=== PATIENT | male | born 1975 | race Caucasian/White ===

== ENCOUNTER 2018-11-07 17:36 | Inpatient (IN) ==
--- NOTE | 2018-11-07 20:29 | XRay Report ---
XR chest 1V portable HISTORY: Atypical chest pain. COMPARISON: Chest 02/03/2014. FINDINGS: The heart remains enlarged. Small left pleural effusion. Perihilar interstitial vascular th ickening has progressed. This is consistent with mild pulmonary edema. No pneumothorax. There are pos tsternotomy changes. IMPRESSION: Interval progression of the mild pulmonary edema and small left pleural effusion. Electronically signed by: Roland Murcia M.D. 11/07/2018 8:27 PM
--- NOTE | 2018-11-07 20:31 | XRay Report ---
RIGHT FOOT 3 VIEWS HISTORY: 2 ulcers under foot and 5th metatarsal ro osteo COMPARISON: None. FINDINGS: No acute fracture or dislocation within the right foot. Old, healed fracture at the neck of the fifth metatarsal. Focal skin ulceration along the plantar surface of the distal first toe measur ing 7 mm. No underlying bony destruction. There is also soft tissue gas at the base of the fifth toe which could be due to a skin ulceration or a gas-forming organism. No underlying bony destruction to suggest osteomyelitis. Old, healed fracture within the proximal phalanx of the fourth toe. No radiopa que foreign bodies. IMPRESSION: 1. No evidence for a myelitis within the right foot. 2. A 7 mm focal skin ulceration at the plantar surface of the distal first toe. 3. There is also soft tissue gas at the base of the fifth toe which could be due to a skin ulceration or a gas-forming infection. Electronically signed by: Roland Murcia M.D. 11/07/2018 8:30 PM
[2018-11-07 20:41] LABS: Basophils # (auto) 0.01 K/uL (0-0.2); Basophils % (auto) 0.1 %; Hematocrit (blood only) 41.4 % (42-52); Immature Granulocytes # (auto) 0.06 K/uL (0.00-0.02); Immature Granulocytes % (auto) 0.5 %; Lymphocytes % (auto) 3.2 %; Mean Corpuscular Hemoglobin 32.8 pg (25-34); Mean Corpuscular Hgb Conc 33.8 g/dL (32-36); Monocytes # (auto) 0.79 K/uL (0.11-0.59); Monocytes % (auto) 6.3 %; Neutrophils # (auto) 11.36 K/uL (1.4-6.5); Neutrophils % (auto) 89.9 %; Platelet Count 126 K/uL (130-400); RDW Coefficient of Variation 14.8 % (11.5-14.5); RDW Standard Deviation 52.8 fL (36.4-46.3); Red Blood Count 4.27 M/uL (4.7-6.1); White Blood Count 12.62 K/uL (4.8-10.8)
[2018-11-07 21:03] LABS: BUN Creatinine Ratio 19.6 (10-20); Blood Urea Nitrogen 32 mg/dl (7-18); Calcium 8.7 mg/dl (8.5-10.1); Carbon Dioxide 23 mmol/L (21-32); Chloride 105 mmol/L (98-107); Est GFR (African American) 58.1; Est GFR (Non-African American) 50.1; Glucose 278 mg/dl (70-99); Sodium 135 mmol/L (136-145)
[2018-11-07 21:13] LABS: Troponin I < 0.015 ng/ml (0-0.045)
[2018-11-07] MEDS ORDERED: CLINDAMYCIN 300 MG in DEXTROSE 5% 50 ML IV ONE (21:14)
--- NOTE | 2018-11-07 22:51 | Emergency Department Note ---
Entered by Leonardo Calderon acting as a scribe for Rod Peters History of Present Illness General Chief complaint: Fever Stated complaint: FEVER FOR 24 HRS, HEART TRANSPLANT JULY 2016 Time Seen by Provider: 11/07/18 19:24 Source: patient and family Limitations: no limitations History of Present Illness Provider complaint: Foot Ulcer Onset (ago): month(s) 3 Location: head, chest, foot and right Radiation: non-radiation Severity: moderate Maximum Pain Intensity: 5 Current Pain Intensity: 5 Relieved By: + none Exacerbated By: + none Associated symptoms: + fever/chills, + nausea/vomiting, + weakness and + other (+diarrhea, ) The patient is a 43 year old male who presents to the ED with complaints of an ulcer on his foot and a fever that began a couple of days ago. The patient has been using meta honey on his foot that had appeared to be helping. The patient had heart transplant at [facility] in 2016. He takes mycophenolic, prednisone, amongst others. The patients highest fever was 103. He also has been vomiting and having diarrhea. Home Medications Home Medications Medication Instructions Recorded Confirmed Type Aspir-81 81 m PO DAILY 11/07/18 11/07/18 History allopurinol [Zyloprim] 300 mg PO DAILY 11/07/18 11/07/18 History alprazolam [Xanax] 1 mg PO HS 11/07/18 11/07/18 History apixaban [Eliquis] 5 mg PO BID 11/07/18 11/07/18 History bumetanide 3 mg PO BID 11/07/18 11/07/18 History calcium carbonate-vitamin D3 1 tab PO BID 11/07/18 11/07/18 History cyanocobalamin (vitamin B-12) 1,000 mcg PO Q OTHER DAY 11/07/18 11/07/18 History [Vitamin B-12] escitalopram oxalate [Lexapro] 10 mg PO HS 11/07/18 11/07/18 History escitalopram oxalate [Lexapro] 20 mg PO HS 11/07/18 11/07/18 History famotidine 20 mg PO BID 11/07/18 11/07/18 History hydralazine 50 mg PO Q12 11/07/18 11/07/18 History insulin degludec [Tresiba 35 unit SUBCUT HS 11/07/18 11/07/18 History FlexTouch U-100] insulin lispro [Humalog KwikPen 0 unit SUBCUT TIDM 11/07/18 11/07/18 History Insulin] magnesium oxide 800 mg PO BID 11/07/18 11/07/18 History metolazone 5 mg PO DAILY PRN 11/07/18 11/07/18 History multivitamin 1 tab PO DAILY 11/07/18 11/07/18 History mycophenolate mofetil 1,000 mg PO BID 11/07/18 11/07/18 History nystatin 5 ml PO QID 11/07/18 11/07/18 History oxycodone 5 mg PO DAILY PRN 11/07/18 11/07/18 History potassium chloride [K-Tab] 60 meq PO QID 11/07/18 11/07/18 History prednisone 5 mg PO QAM 11/07/18 11/07/18 History rosuvastatin [Crestor] 5 mg PO HS 11/07/18 11/07/18 History tacrolimus [Prograf] 1 mg PO Q12 11/07/18 11/07/18 History valganciclovir 900 mg PO DAILY 11/07/18 11/07/18 History Allergies Allergy/AdvReac Type Severity Reaction Status Date / Time cephalexin Allergy Intermediate rash Verified 11/07/18 22:24 Penicillins Allergy Intermediate rash Verified 11/07/18 22:24 vancomycin AdvReac Intermediate Red Man Verified 11/07/18 22:24 Syndrome Past Med/Surg History Medical History Diabetes (Chronic) Heart disease (Chronic) LVAD (left ventricular assist device) present (Chronic) SIRS (systemic inflammatory response syndrome) (Acute) Social History Feels Safe at Home: Yes Smoking Status: Former smoker Review of Systems See HPI for pertinent positives & negatives. and A total of 10 systems reviewed and were otherwise negative Physical Exam Vital Signs Vital Signs - 24 hr 11/07/18 18:34 11/07/18 20:04 11/07/18 21:08 Temperature 36.7 C Temperature Source Oral Sepsis Recent Fever Within 48 Hours No Sepsis Action Taken by Nursing No Action Required Pulse Rate 104 H 103 H Pulse Rate [Apical] Pulse Rhythm Regular Respiratory Rate 20 33 H 32 H Respiratory Effort / Characteristics Non-Labored Spontaneous Non-Labored Respiratory Depth Normal Normal Respiratory Pattern Regular Blood Pressure 182/99 H Blood Pressure [Right Arm] 124/75 Blood Pressure Mean 126 Blood Pressure Mean [Right Arm] 91 Blood Pressure Position Sitting Pulse Oximetry 98 97 96 Oxygen Delivery Method Room Air Room Air Room Air 11/07/18 21:51 Temperature Temperature Source Sepsis Recent Fever Within 48 Hours Sepsis Action Taken by Nursing Pulse Rate Pulse Rate [Apical] 83 Pulse Rhythm Respiratory Rate 25 H Respiratory Effort / Characteristics Non-Labored Respiratory Depth Normal Respiratory Pattern Blood Pressure Blood Pressure [Right Arm] 138/86 Blood Pressure Mean Blood Pressure Mean [Right Arm] 103 Blood Pressure Position Pulse Oximetry 97 Oxygen Delivery Method Room Air Physical Exam GENERAL: He is oriented to person, place, and time. He appears well-developed and well-nourished. He does not appear distressed. ____ HENT: Exam performed. - Head: Normocephalic and atraumatic. - Right Ear: External ear normal. No mastoid tenderness. - Left Ear: External ear normal. No mastoid tenderness. - Mouth/Throat: The oropharynx is clear and moist. No trismus in the jaw. No dental abscesses or uvula swelling. No oropharyngeal exudate or tonsillar abscesses. ____ EYES: Conjunctivae and EOM are normal. Pupils are equal, round, and reactive to light. Right eye exhibits no discharge. Left eye exhibits no discharge. No scleral icterus. ____ NECK: Normal range of motion. Neck supple. No JVD present. No spinous process tenderness present. No carotid bruit present. No rigidity. No tracheal deviation and normal range of motion present. No Brudzinski's sign and no Kernig's sign noted. ____ CV: Normal rate, regular rhythm, normal heart sounds and intact distal pulses. There is no peripheral edema. Palpable radial pulses bue. ____ PULM/CHEST: Effort normal and breath sounds normal. No respiratory distress. No stridor. He has no wheezes. He has no rales. - Chest Wall: He exhibits no tenderness. ____ ABD: The abdomen is soft. Bowel sounds are normal. He has no distension. No mass is present. There is no tenderness. There is no rebound, no guarding, no Laughlin's sign and no tenderness at McBurney's point. Rovsig negative RIGHT FOOT: Ulcer on the plantar surface of the great toe and on plantar surface of the fifth metatarsal. MUSC/SKEL: Normal range of motion. There is no peripheral edema, tenderness or deformity. LYMPH: No cervical adenopathy. ____ NEURO: He is alert and oriented to person, place, and time. He has normal strength. No cranial nerve deficit or sensory deficit. Coordination and gait normal. GCS eye subscore is 4. GCS verbal subscore is 5. GCS motor subscore is 6. cerbellar tests wnl. ____ SKIN: Patient has 2 ulcers on his right foot. Also #1 is located on the plantar surface of the first great toe. Also #2 is located on the plantar surface of the fifth metatarsal area/fifth toe. PSYCH: He has a normal mood and affect. His behavior is normal. Judgment and thought content normal. ____ Course 1944: Medical records reviewed. The patient was seen in room B2, a physical examination was performed. 2124: Vital signs stable. Labs show leukocytosis of 12.62. X-ray shows no osteomyelitis. There are areas of ulceration with soft tissue gas at the base of fifth toe due to skin ulceration versus gas-forming infection. Given the p atient's leukocytosis, reported fever, and being immunocompromised, the patient will be admitted for further management. He will be started on IV antibiotics. 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 Wound cultures were sent. I spoke with Dr. Monsivais, [facility] Hospitalist, about the patients case and he agreed to accept the patient for further evaluation. Administered Medications Discontinued Medications Clindamycin Phosphate 300 mg/ (Dextrose) 52 mls @ 100 mls/hr IV ONE ONE Stop: 11/07/18 21:45 Last Infusion: 11/07/18 22:31 Dose: 0 mls/hr Documented by: [id number] Admin: 11/07/18 21:47 Dose: 100 mls/hr Documented by: [id number] Medical Decision Making Medical Records Attestation: I reviewed the patient's medical records. Home Medications Current Medication List: was personally reviewed by me Laboratory Data Attestation: I reviewed the patient's lab results. Result diagrams: 11/07/18 20:10 11/07/18 21:21 Lab Results 11/07/18 11/07/18 11/07/18 Range/Units 20:10 20:10 20:10 WBC 12.62 H (4.8-10.8) K/uL RBC 4.27 L (4.7-6.1) M/uL Hgb 14.0 (14.0-18.0) g/dL Hct 41.4 L (42-52) % MCV 97.0 (80-100) fL MCH 32.8 (25-34) pg MCHC 33.8 (32-36) g/dL RDW Std Deviation 52.8 H (36.4-46.3) fL RDW Coeff of Selena 14.8 H (11.5-14.5) % Plt Count 126 L (130-400) K/uL MPV 11.0 H (7.4-10.4) fL Immature Gran % (Auto) 0.5 % Neut % (Auto) 89.9 % Lymph % (Auto) 3.2 % Aiken % (Auto) 6.3 % Eos % (Auto) 0.0 % Baso % (Auto) 0.1 % Immature Gran # (Auto) 0.06 H (0.00-0.02) K/uL Neut # (Auto) 11.36 H (1.4-6.5) K/uL Lymph # (Auto) 0.40 L (1.2-3.4) K/uL Aiken # (Auto) 0.79 H (0.11-0.59) K/uL Eos # (Auto) 0.00 (0-0.5) K/uL Baso # (Auto) 0.01 (0-0.2) K/uL ESR 37 H (0-14) mm/hr Sodium 135 L (136-145) mmol/L Potassium (3.5-5.1) mmol/L Chloride 105 (98-107) mmol/L Carbon Dioxide 23 (21-32) mmol/L Anion Gap 7.0 (3-11) BUN 32 H (7-18) mg/dl Creatinine 1.63 H (0.6-1.4) mg/dl Est Cr Clr Drug Dosing 91.0 ml/min Est GFR ( Amer) 58.1 Est GFR (Non-Af Amer) 50.1 BUN/Creatinine Ratio 19.6 (10-20) Glucose 278 H (70-99) mg/dl Lactate (0.4-2.0) mmol/L Calcium 8.7 (8.5-10.1) mg/dl Troponin I < 0.015 (0-0.045) ng/ml C-Reactive Protein 26.00 H (0-0.29) mg/dl 11/07/18 11/07/18 11/07/18 Range/Units 20:10 21:21 21:21 WBC (4.8-10.8) K/uL RBC (4.7-6.1) M/uL Hgb (14.0-18.0) g/dL Hct (42-52) % MCV (80-100) fL MCH (25-34) pg MCHC (32-36) g/dL RDW Std Deviation (36.4-46.3) fL RDW Coeff of Selena (11.5-14.5) % Plt Count (130-400) K/uL MPV (7.4-10.4) fL Immature Gran % (Auto) % Neut % (Auto) % Lymph % (Auto) % Aiken % (Auto) % Eos % (Auto) % Baso % (Auto) % Immature Gran # (Auto) (0.00-0.02) K/uL Neut # (Auto) (1.4-6.5) K/uL Lymph # (Auto) (1.2-3.4) K/uL Aiken # (Auto) (0.11-0.59) K/uL Eos # (Auto) (0-0.5) K/uL Baso # (Auto) (0-0.2) K/uL ESR (0-14) mm/hr Sodium (136-145) mmol/L Potassium 4.4 (3.5-5.1) mmol/L Chloride (98-107) mmol/L Carbon Dioxide (21-32) mmol/L Anion Gap (3-11) BUN (7-18) mg/dl Creatinine (0.6-1.4) mg/dl Est Cr Clr Drug Dosing ml/min Est GFR ( Amer) Est GFR (Non-Af Amer) BUN/Creatinine Ratio (10-20) Glucose (70-99) mg/dl Lactate 1.8 (0.4-2.0) mmol/L Calcium (8.5-10.1) mg/dl Troponin I (0-0.045) ng/ml C-Reactive Protein (0-0.29) mg/dl Imaging Data Radiologist's Impression: Radiology results as stated below per my review and the radiologist's interpretation: RIGHT FOOT 3 VIEWS HISTORY: 2 ulcers under foot and 5th metatarsal ro osteo COMPARISON: None. FINDINGS: No acute fracture or dislocation within the right foot. Old, healed fracture at the neck of the fifth metatarsal. Focal skin ulceration along the plantar surface of the distal first toe measuring 7 mm. No underlying bony destruction. There is also soft tissue gas at the base of the fifth toe which could be due to a skin ulceration or a gas-forming organism. No underlying bony destruction to suggest osteomyelitis. Old, healed fracture within the proximal phalanx of the fourth toe. No radiopaque foreign bodies. IMPRESSION: 1. No evidence for a myelitis within the right foot. 2. A 7 mm focal skin ulceration at the plantar surface of the distal first toe. 3. There is also soft tissue gas at the base of the fifth toe which could be due to a skin ulceration or a gas-forming infection. Electronically signed by: Roland Murcia M.D. 11/07/2018 8:30 PM XR chest 1V portable HISTORY: Atypical chest pain. COMPARISON: Chest 02/03/2014. FINDINGS: The heart remains enlarged. Small left pleural effusion. Perihilar interstitial vascular thickening has progressed. This is consistent with mild pulmonary edema. No pneumothorax. There are poststernotomy changes. IMPRESSION: Interval progression of the mild pulmonary edema and small left pleural effusion. Electronically signed by: Roland Murcia M.D. 11/07/2018 8:27 PM ECG Data Attestation: I personally reviewed and interpreted this ECG as follows: Indication: other (fever) Rate (beats per minute): 100 Rhythm: normal sinus Findings: + other (ID 201, QRS, QTC within normal limits, T-wavew in lead 3 only) and + 1st degree AV block; no ST depression and no ST elevation Blood Pressure Blood Pressure Findings: Elevated blood pressure Blood Pressure Disposition: further management by hospitalist SHAILA Narrative Vital signs stable. Labs show leukocytosis of 12.62. X-ray shows no osteomyelitis. There are areas of ulceration with soft tissue gas at the base of fifth toe due to skin ulceration versus gas-forming infection. Given the patient's leukocytosis, reported fever, and being immunocompromised, the patient will be admitted for further management. He will be started on IV antibiotics. 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 Wound cultures were sent. I spoke with Dr. Monsivais, [facility] Hospitalist, about the patients case and he agreed to accept the patient for further evaluation. Impression & Plan Cellulitis of foot, right, Immunocompromised state, Diabetic foot ulcer Discharge Plan Visit Data Chief Complaint: Fever Stated Complaint: FEVER FOR 24 HRS, HEART TRANSPLANT JULY 2016 ED Provider: Rod Peters Discharge Problem: Cellulitis of foot, right, Immunocompromised state, Diabetic foot ulcer Patient Disposition: Being Evaluated by Hospitalist Forms Stand Alone Forms: My [facility] Prescriptions Prescriptions: No Action Aspir-81 81 m PO DAILY RF: 0 multivitamin Tablet 1 tab PO DAILY RF: 0 valganciclovir 450 mg Tablet 900 mg PO DAILY RF: 0 nystatin 100,000 unit/mL suspension 5 ml PO QID RF: 0 alprazolam [Xanax] 1 mg tablet 1 mg PO HS RF: 0 prednisone 5 mg tablet 5 mg PO QAM RF: 0 metolazone 5 mg tablet 5 mg PO DAILY PRN (Reason: Weight Gain) RF: 0 cyanocobalamin (vitamin B-12) [Vitamin B-12] 1,000 mcg Tablet 1,000 mcg PO Q OTHER DAY RF: 0 hydralazine 25 mg tablet 50 mg PO Q12 RF: 0 mycophenolate mofetil 500 mg Tablet 1,000 mg PO BID RF: 0 famotidine 20 mg Tablet 20 mg PO BID RF: 0 bumetanide 1 mg tablet 3 mg PO BID RF: 0 allopurinol [Zyloprim] 300 mg tablet 300 mg PO DAILY RF: 0 tacrolimus [Prograf] 1 mg capsule 1 mg PO Q12 RF: 0 oxycodone 5 mg Tablet 5 mg PO DAILY PRN (Reason: Pain) RF: 0 insulin lispro [Humalog KwikPen Insulin] 100 unit/mL insulin pen subcut TIDM RF: 0 escitalopram oxalate [Lexapro] 10 mg tablet 10 mg PO HS RF: 0 escitalopram oxalate [Lexapro] 20 mg tablet 20 mg PO HS RF: 0 rosuvastatin [Crestor] 5 mg Tablet 5 mg PO HS RF: 0 calcium carbonate-vitamin D3 500 mg(1,250mg) -400 unit Tablet 1 tab PO BID RF: 0 Eliquis 5 mg tablet 5 mg PO BID RF: 0 Tresiba FlexTouch U-100 100 unit/mL (3 mL) insulin pen 35 unit subcut HS RF: 0 potassium chloride [K-Tab] 20 mEq tablet extended release 60 meq PO QID RF: 0 magnesium oxide 400 mg magnesium Tablet 800 mg PO BID RF: 0 Referrals Referrals: Ruth Jordan DO [Primary Care Provider] - Discharge Problem: Diabetic foot ulcer Qualifiers: Diabetic foot ulcer location: unspecified part of foot Diabetes mellitus type: type 2 Laterality: unspecified laterality Non-pressure ulcer stage: unspecified non-pressure ulcer stage Qualified Code(s): E11.621 - Type 2 diabetes mellitus with foot ulcer The scribe's documentation has been prepared under my direction and personally reviewed by me in its entirety. I confirm that the note above accurately reflects all work, treatment, procedures, and medical decision making performed by me.
[2018-11-07] MEDS ORDERED: PROMETHAZINE HCL 12.5 MG in SODIUM CHLORIDE 0.9% 50 ML IV STA (23:04)
[2018-11-07] MEDS ORDERED: PROMETHAZINE 12.5 MG/50.5 ML BAG IV ONE (23:30)
[2018-11-08] MEDS ORDERED: NITROGLYCERIN SL 0.4 MG/TAB TAB SL PRN (00:10)
[2018-11-08] MEDS ORDERED: IMIPENEM/CILASTATIN SODIUM 500 MG in DEXTROSE 5% 100 ML IV SCH (00:10)
[2018-11-08] MEDS ORDERED: OXYCODONE HCL IR 5 MG TAB (IMMEDIATE RELEASE) PO PRN (00:10)
[2018-11-08] MEDS ORDERED: metOLazone 5 MG TABLET PO PRN (00:10)
[2018-11-08] MEDS ORDERED: POLYETHYLENE (MIRALAX) 17 GM PACK PO PRN (00:10)
[2018-11-08] MEDS ORDERED: ALPRAZolam 0.5 MG TABLET PO STA (00:10)
[2018-11-08] MEDS ORDERED: IMIPENEM/CILASTATIN CONSULT ACTIVE PRN (00:19)
--- NOTE | 2018-11-08 00:30 | History and Physical Report ---
DATE OF ADMISSION: 11/07/2018 CHIEF COMPLAINT: Right foot infection. HISTORY OF PRESENT ILLNESS: This 43-year-old male with past medical history significant for type 2 diabetes, hyperlipidemia, gout, obstructive sleep apnea, on continuous positive airway pressure, chronic deep venous thrombosis, morbid obesity, chronic kidney disease stage III, restless legs syndrome, low back pain, status post heart transplant 2 years ago because of enlarged heart, chronic lymphedema, posttraumatic stress disorder, depression and anxiety comes in because of right foot infection. He has some callouses in his right foot. They were not infected. They were healing, but since yesterday, the foot has become somewhat erythematous and developed fever and chills so he came here. Before coming, he called his transplant center and they were okay for him to come here. He was afebrile and hemodynamically stable. White count is 12.6. His ESR is 37. CRP is 26. Creatinine 1.6, baseline is 1.5. Chest x-rays, no obvious infiltrate. Right foot x-ray shows no evidence for myelitis within the right foot, 7 mm focal skin ulceration of the plantar surface of the distal right first toe. There is also soft tissue gas at the base of the fifth toe which could be due to skin ulceration or gas forming infection. Tried to call his transplant center and left a message, also spoke with orthopedics, they are okay for admission and follow up with CAT scan and advised for broad-spectrum antibiotics. He is allergic to penicillin and vancomycin. He needs Benadryl before those antibiotics, so we put him on clindamycin and also I.V. imipenem. The patient has some headaches. Denies any dizziness. No blurred visions. He has some thrush. He is on nystatin swish and swallow for that. Appetite is okay. Sleeping okay. No chest pain. No shortness of breath. No cough. No nausea. No abdominal pain. No diarrhea or constipation. Urine is somewhat dark, but no burning micturition. No hematuria. Ambulating okay. Since heart transplant, he has problems with rejection two times, the last one was in about the first week of September and [facility] adjusting his immunosuppressive medications. ALLERGIES: CEPHALEXIN, PENICILLIN AND VANCOMYCIN. PAST MEDICAL HISTORY: As mentioned above. PAST SURGICAL HISTORY: Right heart catheterization and biopsy of the heart lining and heart transplantation in 07/2016. MEDICATIONS: The patient currently is on allopurinol 300 mg p.o. daily, Xanax 1 mg p.o. at bedtime, Eliquis 5 mg p.o. b.i.d., aspirin 81 mg p.o. daily, Bumex 3 mg p.o. b.i.d., calcium plus vitamin D one tablet p.o. b.i.d., vitamin B12 1000 mcg p.o. every other day, Lexapro 30 mg p.o. at bedtime, famotidine 20 mg p.o. b.i.d., hydralazine 50 mg p.o. b.i.d., Tresiba FlexTouch U-100 p.o. at bedtime, NovoLog t.i.d., magnesium oxide 800 mg p.o. b.i.d., metolazone 5 mg p.o. daily p.r.n., multivitamins 1 tablet p.o. daily, diclofenac 1000 mg p.o. b.i.d., nystatin 5 mg p.o. q.i.d., Oxycodone 5 mg p.o. daily p.r.n., potassium chloride 60 mEq p.o. q.i.d., prednisone 5 mg p.o. a.m., Crestor 5 mg at bedtime, tacrolimus 1 mg p.o. b.i.d. and valganciclovir 900 mg p.o. daily. FAMILY HISTORY: Unknown by the patient, as per records. SOCIAL HISTORY: Former smoker. No alcohol use. No drug use. REVIEW OF SYMPTOMS: As per HPI. Rest of review of systems negative. PHYSICAL EXAMINATION: GENERAL: The patient is morbidly obese, not in acute distress. VITAL SIGNS: Temperature 36.7, pulse 83, respiratory rate 20s, blood pressure 138/86 and oxygen 97% on room air. HEENT: No pallor. No icterus. Pupils equal, round and reactive to light. NECK: No JVD. No neck masses. No carotid bruits. CARDIOVASCULAR: S1, S2 heard. Regular rate and rhythm. No murmur. No gallop. RESPIRATORY SYSTEM: Normal AP diameter. No accessory muscle use. No wheezing. No crackles. ABDOMEN: Soft. Bowel sounds present. Nontender. No distention. CENTRAL NERVOUS SYSTEM: Nonfocal. EXTREMITIES: Right foot erythematous and somewhat swollen and right big toe on the lateral medial aspect of the plantar surface callous with some ulcer seen and also on the lateral side of the foot callous and ulcer seen No obvious drainage seen.. LABORATORY DATA: WBC 12.6, hemoglobin 14, hematocrit 41.4 and platelets 126. ESR 37. Sodium 135, potassium 4.4, chloride 105, bicarbonate 23, BUN 32, creatinine 1.6, serum glucose 278, lactate 1.8 and magnesium 8.7. Troponin I less than 0.015. C-reactive protein 26. Right foot x-ray with no evidence for myelitis, right foot with a 7 mm focal skin ulceration at the plantar surface of the distal right first toe also soft tissue gas at the base of the fifth toe which could be due to skin ulceration or gas forming infection. Electrocardiogram, sinus rhythm with first-degree AV block at a rate of 100, incomplete right branch block seen and no acute ST changes seen. ASSESSMENT AND PLAN: This is a 43-year-old male who presents with right foot infection. 1. Right foot infection, infection of the callus with cellulitis and also x-ray showed questionable gas forming infection vs from skin ulceration. Will treat empirically with I.V. clindamycin and I.V. Primaxin. He is allergic to penicillins with rash and Valentino syndrome with vancomycin.. He states he takes Benadryl before those antibiotics. Will see how he tolerates imipenem. We will place him on Benadryl t.i.d. p.r.n. We will follow the cultures. We will get a CAT scan of the foot to make sure there is no necrotizing infection. Notified orthopedics. Currently not septic, we will continue I.V. antibiotics and we will follow the CAT scan in the morning. We will monitor on tele floor because of his cardiac history. He also complained of some pain in his right thigh region. So, we will also do arterial ultrasound to make sure there is no peripheral vascular disease. 2. History of heart transplant. The patient states he has a murmur since he was a child and his heart was enlarged and it was getting bigger, so he is status post heart transplant 2 years ago and he has some rejection issues with a couple of times, the last one was the first week of September this year [facility]. We will continue the same medications for now. Before he came to the hospital, he called the transplant and they are okay to come to the local hospital. Tried to call them and left a message. Their night number is and day number is . We will try to call them again. 3. Chronic kidney disease stage III, baseline creatinine 1.5, currently creatinine is 1.6, close to baseline. We will follow the laboratories in a.m. 4. Morbid obesity and sleep apnea. On continuous positive airway pressure at bedtime. 5. History of diabetes. The patient is currently n.p.o. but not getting any long-acting insulin tonight. Continue long acting insulin Lantus 35 units subcutaneous at bedtime and insulin sliding scale. If he is still n.p.o. tomorrow, then we need to cut back on his long acting insulin. Follow his blood sugars. 6. History of depression and anxiety. Continue his Lexapro and his Xanax. 7. History of deep venous thrombosis. We will hold Eliquis for now. If there is no plan for any procedure tomorrow, restart Eliquis. 8. Questionable heart failure. We do not have any echocardiogram on records, but he will continue his home dose of Bumex 3 mg p.o. b.i.d. with potassium supplement and magnesium supplement. Also Zaroxolyn as needed. 9. History of gout. Continue his allopurinol. 10. Hypertension. Continue his hydralazine and his diuretics and monitor his blood pressure. 11. Hyperlipidemia. On Crestor. 12. Deep venous thrombosis prophylaxis. He is on Eliquis, which is on hold, to restart as soon as possible. 13. Disposition. Admit to tele floor because of his cardiac history. Level 1 full code. MTDD
[2018-11-08] MEDS: INSULIN DEGLUDEC 100 UNITS/ML SQ SCH ×2 (00:35→20:37)
[2018-11-08] MEDS ORDERED: DEXTROSE 50% 50 ML SYRINGE IV PRN (00:45)
[2018-11-08] MEDS ORDERED: CARBOHYDRATES FOR HYPOGLYCEMIA PO PRN (00:45)
[2018-11-08] MEDS ORDERED: GLUCOSE 10 TABS/TUBE PO PRN (00:45)
[2018-11-08] MEDS ORDERED: GLUCAGON FOR INJ 1 MG VIAL IM PRN (00:45)
[2018-11-08] MEDS ORDERED: GLUCOSE 40% GEL 15 GM TUBE PO PRN (00:45)
[2018-11-08] MEDS: SODIUM CHLORIDE 0.9% 1000ML 1,000 ML IV SCH ×2 (01:16→17:36)
[2018-11-08] MEDS: IMIPENEM/CILASTATIN SODIUM 500 MG in DEXTROSE 5% 100 ML IV SCH ×4 (01:16→17:37)
[2018-11-08] MEDS: INSULIN ASPART 100 UNITS/ML 3 ML PEN SC SCH ×5 (01:17→20:36)
[2018-11-08] MEDS: ACETAMINOPHEN 325 MG TAB PO PRN ×2 (04:30→14:27)
[2018-11-08] MEDS ORDERED: PROMETHAZINE HCL 12.5 MG in SODIUM CHLORIDE 0.9% 50 ML IV PRN (04:47)
[2018-11-08] MEDS ORDERED: INFLUENZA ADMINISTRATION CHARGE ONE (05:00)
[2018-11-08] MEDS ORDERED: INFLUENZA VIRUS QUAD VACCINE 0.5 ML SYR IM ONE (05:00)
[2018-11-08 05:48] LABS: Basophils # (auto) 0.01 K/uL (0-0.2); Basophils % (auto) 0.1 %; Eosinophils # (auto) 0.01 K/uL (0-0.5); Eosinophils % (auto) 0.1 %; Hematocrit (blood only) 36.2 % (42-52); Hemoglobin 12.4 g/dL (14.0-18.0); Immature Granulocytes # (auto) 0.04 K/uL (0.00-0.02); Immature Granulocytes % (auto) 0.3 %; Lymphocytes # (auto) 0.43 K/uL (1.2-3.4); Lymphocytes % (auto) 3.6 %; Mean Corpuscular Hemoglobin 32.9 pg (25-34); Mean Corpuscular Hgb Conc 34.3 g/dL (32-36); Mean Platelet Volume 10.3 fL (7.4-10.4); Monocytes # (auto) 1.31 K/uL (0.11-0.59); Monocytes % (auto) 10.9 %; Neutrophils # (auto) 10.24 K/uL (1.4-6.5); Platelet Count 130 K/uL (130-400); RDW Coefficient of Variation 14.8 % (11.5-14.5); RDW Standard Deviation 52.2 fL (36.4-46.3); Red Blood Count 3.77 M/uL (4.7-6.1); White Blood Count 12.04 K/uL (4.8-10.8)
[2018-11-08 06:06] LABS: BUN Creatinine Ratio 19.3 (10-20); Calcium 8.6 mg/dl (8.5-10.1); Creatinine Clr Calc Pharmacy 107.2 ml/min; Est GFR (African American) 71.1; Est GFR (Non-African American) 61.3; Magnesium 1.6 mg/dl (1.8-2.4); Potassium 4.5 mmol/L (3.5-5.1)
[2018-11-08] MEDS: CLINDAMYCIN 600 MG in DEXTROSE 5% 50 ML IV SCH ×3 (06:28→22:03)
[2018-11-08 06:41] LABS: Estimated Average Glucose 131 mg/dl; Hemoglobin A1C 6.2 % (4.5-5.6)
[2018-11-08] MEDS: MAGNESIUM SULFATE / D5W 1 GM/100 ML BAG IV SCH ×2 (07:29→08:35)
[2018-11-08] MEDS ORDERED: INSULIN ASPART 100 UNITS/ML 3 ML PEN SC SCH (07:30)
--- NOTE | 2018-11-08 07:48 | CT Scan Report ---
CT SCAN OF THE RIGHT FOOT WITHOUT IV CONTRAST CLINICAL HISTORY: Necrotizing infection of the right foot. COMPARISON STUDY: Radiographs of the right foot dated 11/07/2018. TECHNIQUE: CT scan of the right foot is performed from the ankle joint to the base of the foot. Image s are reviewed in the axial, sagittal, and coronal planes. IV contrast was not administered for this examination. A dose lowering technique was utilized adhering to the principles of ALARA. CT DOSE: 182.47 mGy.cm FINDINGS: The skeletal structures are osteopenic. No fracture is seen. The ankle mortise is intact. N o ankle joint effusion is identified. No osteochondral defect is suggested in the talar dome. Chronic post traumatic deformity is suggested in the distal fifth metatarsal. No bony erosion or periostitis is identified. Mild osteoarthritic change is seen at the first metatarsophalangeal joint as well as the tarsometatarsal joints. Diffuse superficial soft tissue edema and fluid is present throughout the right foot, greatest dorsally. Foci of subcutaneous gas are present within the lateral forefoot, gre atest around the fifth proximal phalanx, and also along the lateral aspect of the fourth proximal pha lanx. There is no evidence of organized fluid collection on this unenhanced examination. A cutaneous ulcer is suggested along the plantar aspect of the fifth toe at the level of the metatarsophalangeal joint. There is a small dorsal calcaneal enthesophyte. Atherosclerotic calcification is observed in t he regional arteries. IMPRESSION: 1. Findings are consistent with diffuse cellulitis throughout the right foot with an ulcer along the plantar aspect of the fifth toe. 2. Foci of subcutaneous gas are present in the lateral forefoot as detailed above, greatest around th e fifth proximal phalanx. Although this could be related to cutaneous ulcer, a necrotizing infection is favored. If there is clinical concern for necrotizing fasciitis emergent surgical consultation and biopsy should be considered. Clinical correlation will be essential. 3. There is no convincing CT evidence of osteomyelitis. 4. No organized fluid collection is identified to suggest abscess on this unenhanced examination. 5. Chronic posttraumatic and mild degenerative changes as above. Dictated: 11/08/2018 7:17 AM Transcribed: 11/08/2018 7:28 AM Dilcia [id number] [facility] Electronically signed by: Jarret Diaz M.D. 11/08/2018 7:47 AM
[2018-11-08] MEDS: CALCIUM 600MG + VIT D 400 IU TAB PO SCH ×2 (08:36→20:45)
[2018-11-08] MEDS: BUMETANIDE 1 MG TAB PO SCH ×2 (08:37→16:54)
[2018-11-08] MEDS: HydrALAZINE TAB 50 MG TAB PO SCH ×2 (08:37→20:44)
[2018-11-08] MEDS: MAGNESIUM OXIDE 400 MG TAB PO SCH ×2 (08:37→20:46)
[2018-11-08] MEDS: FAMOTIDINE 20 MG TAB PO SCH ×2 (08:37→20:47)
[2018-11-08] MEDS: TACROLIMUS 1 MG CAP PO SCH ×2 (08:37→20:48)
[2018-11-08] MEDS: MYCOPHENOLATE MOFETIL 250 MG CAP PO SCH ×2 (08:38→20:42)
[2018-11-08] MEDS: POTASSIUM CHLORIDE 20 MEQ TABCR PO SCH ×4 (08:38→20:41)
[2018-11-08] MEDS: NYSTATIN SUSP 500,000 U/5 ML UDC PO SCH ×4 (08:39→20:47)
--- NOTE | 2018-11-08 08:54 | Hospitalist Progress Note ---
Date of Service November 08, 2018 Subjective Also placed on gentle fluids ns@50ml/hr as patient is npo currently. Continued home diuretics.To Monitor volume status closely. Results & Data Vital Signs (Past 12 Hours) Vital Signs Temp Pulse Pulse Resp BP BP Pulse Ox 11/08/18 07:04 37.4 C 97 H 32 H 149/92 H 93 11/08/18 04:29 38.6 C H 11/08/18 03:08 36.8 C 93 H 20 139/90 96 11/08/18 00:30 11/08/18 00:13 36.9 C 90 23 132/79 96 11/08/18 00:12 89 11/07/18 21:51 83 25 H 138/86 97 11/07/18 21:08 32 H 124/75 96 Pulse Ox 11/08/18 07:04 11/08/18 04:29 11/08/18 03:08 11/08/18 00:30 96 11/08/18 00:13 11/08/18 00:12 11/07/18 21:51 11/07/18 21:08
[2018-11-08] MEDS ORDERED: ASPIRIN 81 MG ECTAB PO SCH (09:00)
[2018-11-08] MEDS ORDERED: predniSONE 5 MG TAB PO SCH (09:00)
[2018-11-08] MEDS ORDERED: VALGANCICLOVIR PO SCH (09:00)
[2018-11-08] MEDS ORDERED: MULTIVITAMIN TAB PO SCH (09:00)
[2018-11-08] MEDS ORDERED: allopurinoL 300 MG TAB PO SCH (09:00)
--- NOTE | 2018-11-08 10:19 | Infectious Disease Consult ---
Date of Consultation November 08, 2018 Assessment & Plan (1) Cellulitis of foot, right: will add dapto pending futher culture results. await blood and wound cultures. ortho eval pending, suspect will need surgery. will follow. History of Present Illness Attending Physician: Bert Swanson MD pt admitted with sudden onset pain, erythema, warmth to right foot. has callous on foot but denies recent trauma. complicated pmh with multiple co-morbidities including a heart transplant 2 years ago, on immunosuppressives, tolerating well. was placed on imipenem and clinda in ER after x ray and ct foot revealed gas in foot at 5th toe and changes consistent with cellulitis and necrotizing infection. no abscess or osteo noted. ortho consult is pending. had subjective fevers at home, afebrile since admission. wbc 12, ESR 37, crp26. creat 1.3. CXR - pulm edema. denies cp, sob, cough, no abd pain, no n/v/d. npo pending ortho eval, asking to eat and drink. states overall he feels just slightly better than admission. blood cultures pending, wound culture pending, rare gpc and gnr on gram stain. tolerating abx. has pcn and vanco allergy listed, he states he is not allergic, he just needs benadryl prior to infusion. Allergies Allergy/AdvReac Type Severity Reaction Status Date / Time cephalexin Allergy Intermediate rash Verified 11/07/18 22:24 Penicillins Allergy Intermediate rash Verified 11/07/18 22:24 vancomycin AdvReac Intermediate Red Man Verified 11/07/18 22:24 Syndrome Home Medications Home Medications Medication Instructions Recorded Confirmed Type Aspir-81 81 m PO DAILY 11/07/18 11/07/18 History allopurinol [Zyloprim] 300 mg PO DAILY 11/07/18 11/07/18 History alprazolam [Xanax] 1 mg PO HS 11/07/18 11/07/18 History apixaban [Eliquis] 5 mg PO BID 11/07/18 11/07/18 History bumetanide 3 mg PO BID 11/07/18 11/07/18 History calcium carbonate-vitamin D3 1 tab PO BID 11/07/18 11/07/18 History cyanocobalamin (vitamin B-12) 1,000 mcg PO Q OTHER DAY 11/07/18 11/07/18 History [Vitamin B-12] escitalopram oxalate [Lexapro] 10 mg PO HS 11/07/18 11/07/18 History escitalopram oxalate [Lexapro] 20 mg PO HS 11/07/18 11/07/18 History famotidine 20 mg PO BID 11/07/18 11/07/18 History hydralazine 50 mg PO Q12 11/07/18 11/07/18 History insulin degludec [Tresiba 35 unit SUBCUT HS 11/07/18 11/07/18 History FlexTouch U-100] insulin lispro [Humalog KwikPen 0 unit SUBCUT TIDM 11/07/18 11/07/18 History Insulin] magnesium oxide 800 mg PO BID 11/07/18 11/07/18 History metolazone 5 mg PO DAILY PRN 11/07/18 11/07/18 History multivitamin 1 tab PO DAILY 11/07/18 11/07/18 History mycophenolate mofetil 1,000 mg PO BID 11/07/18 11/07/18 History nystatin 5 ml PO QID 11/07/18 11/07/18 History oxycodone 5 mg PO DAILY PRN 11/07/18 11/07/18 History potassium chloride [K-Tab] 60 meq PO QID 11/07/18 11/07/18 History prednisone 5 mg PO QAM 11/07/18 11/07/18 History rosuvastatin [Crestor] 5 mg PO HS 11/07/18 11/07/18 History tacrolimus [Prograf] 1 mg PO Q12 11/07/18 11/07/18 History valganciclovir 900 mg PO DAILY 11/07/18 11/07/18 History Patient History Medical History Diabetes (Chronic) Heart disease (Chronic) LVAD (left ventricular assist device) present (Chronic) SIRS (systemic inflammatory response syndrome) (Acute) Social History Preferred Language: Slovenian Communication Ability: Effective [employer]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 Beliefs That Will Affect Care: None Current Living Situation: Spouse Other Information That Helps Us Care for You: No Feels Safe at Home: Yes Safety Concerns: Feels Safe At This Time Smoking Status: Never smoker Hx Alcohol Use: Yes Alcohol type: beer Hx Substance Use: No Review of Systems Review of Systems: All systems reviewed & are unremarkable except as noted in HPI & below Physical Exam Constitutional: WD/WN, vitals as above + morbidly obese Eyes: PERRL, conjunctivae normal, anicteric sclerae ENMT: external ear and nose normal, oropharynx normal Neck: normal visual inspection Respiratory: normal respiratory effort, lungs clear to auscultation Auscultation: + diminished lung sounds Cardiovascular: RRR, no murmur, no edema Gastrointestinal (Abdomen): normal bowel sounds, soft, nontender, no hepatosplenomegaly Musculoskeletal: no cyanosis or clubbing, extremities motor strength 5/5 Skin: no rashes, warm and dry + wound and + ecchymosis (right 5th toe with ecchymosis, open wound, warmth, tender, erythema noted ) Psychiatric: A+Ox3, euthymic affect Results & Data Vital Signs (Past 12 Hours) Vital Signs Temp Pulse Pulse Pulse Resp BP BP 11/08/18 09:25 98 H 11/08/18 07:04 37.4 C 97 H 32 H 149/92 H 11/08/18 04:29 38.6 C H 11/08/18 03:08 36.8 C 93 H 20 139/90 11/08/18 00:30 11/08/18 00:13 36.9 C 90 23 132/79 11/08/18 00:12 89 Pulse Ox Pulse Ox 11/08/18 09:25 11/08/18 07:04 93 11/08/18 04:29 11/08/18 03:08 96 11/08/18 00:30 96 11/08/18 00:13 96 11/08/18 00:12 Laboratory Results Microbiology 11/07/18 20:37 Foot,Right Gram Stain - Final PG Care Time/CCT Total # of Minutes Spent Total Time Spent with Patient: Total time spent is greater than 50% in coordination of care (as documented) at patient's floor/unit and/or counseling patient:
[2018-11-08] MEDS ORDERED: DAPTOmycin 450 MG in SYRINGE 0 ML IV SCH (10:30)
--- NOTE | 2018-11-08 14:35 | Ultrasound Report ---
US arterial duplex LE RT HISTORY: 43 years-old Male pvd? Bilateral lower extremity pain with possible peripheral arterial dis ease COMPARISON: CT of the right foot 11/07/2018 TECHNIQUE: Multiple real-time significant images of the right lower extremity arterial structures wer e obtained assessing grayscale appearance, color and spectral flow. Segmental blood pressures were al so obtained. FINDINGS: SEGMENTAL PRESSURES: Right: Brachial 140 (index); posterior tibial 179 (1.28); dorsalis pedis 166 (1.19). Left: Brachial 134 (index); posterior tibial 190 (1.36); dorsalis pedis 161 (1.15). Predominantly triphasic and biphasic waveforms are noted throughout the right lower extremity with tr iphasic waveforms seen above the level of the knee. No arterial occlusion. Elevated peak systolic sangeetha ocities of the posterior tibial, peroneal, anterior tibial and dorsalis pedis arteries are noted johnathon uring up to 163 cm/s within the posterior tibial artery suggestive of underlying peripheral arterial stenosis. IMPRESSION: 1. Segmental pressures as above. 2. Triphasic and biphasic waveforms throughout the right lower extremity. 3. No arterial occlusion. The above report was generated using voice recognition software. It may contain grammatical, syntax o r spelling errors. Electronically signed by: Aniceto Vanegas M.D. 11/08/2018 2:33 PM
--- NOTE | 2018-11-08 14:58 | Orthopedic Consultation ---
Date of Consultation November 08, 2018 Assessment & Plan (1) Cellulitis of foot, right: Right foot cellulitis with sub Q gas per CT, no arterial compromise. Will consult with our psychiatric specialist Dr. Smallwood and Dr. Alvares will also evaluate. Likely will need a semi urgent I&D with poss removal gangrenous tissue if progresses. History of Present Illness Attending Physician: Bert Swanson MD History of Present Illness 43 yo male c/o right foot calluses recently, then developed fever 3 days ago, foot became increasingly swollen and red. Admitted to Hospital. CT of foot area showed cellulitis, ulceration about the 5th toe, and subcutaneous gas in the same area. Doppler showed no arterial compromise. Allergies Allergy/AdvReac Type Severity Reaction Status Date / Time cephalexin Allergy Intermediate rash Verified 11/07/18 22:24 Penicillins Allergy Intermediate rash Verified 11/07/18 22:24 vancomycin AdvReac Intermediate Red Man Verified 11/07/18 22:24 Syndrome Home Medications Home Medications Medication Instructions Recorded Confirmed Type Aspir-81 81 m PO DAILY 11/07/18 11/07/18 History allopurinol [Zyloprim] 300 mg PO DAILY 11/07/18 11/07/18 History alprazolam [Xanax] 1 mg PO HS 11/07/18 11/07/18 History apixaban [Eliquis] 5 mg PO BID 11/07/18 11/07/18 History bumetanide 3 mg PO BID 11/07/18 11/07/18 History calcium carbonate-vitamin D3 1 tab PO BID 11/07/18 11/07/18 History cyanocobalamin (vitamin B-12) 1,000 mcg PO Q OTHER DAY 11/07/18 11/07/18 History [Vitamin B-12] escitalopram oxalate [Lexapro] 10 mg PO HS 11/07/18 11/07/18 History escitalopram oxalate [Lexapro] 20 mg PO HS 11/07/18 11/07/18 History famotidine 20 mg PO BID 11/07/18 11/07/18 History hydralazine 50 mg PO Q12 11/07/18 11/07/18 History insulin degludec [Tresiba 35 unit SUBCUT HS 11/07/18 11/07/18 History FlexTouch U-100] insulin lispro [Humalog KwikPen 0 unit SUBCUT TIDM 11/07/18 11/07/18 History Insulin] magnesium oxide 800 mg PO BID 11/07/18 11/07/18 History metolazone 5 mg PO DAILY PRN 11/07/18 11/07/18 History multivitamin 1 tab PO DAILY 11/07/18 11/07/18 History mycophenolate mofetil 1,000 mg PO BID 11/07/18 11/07/18 History nystatin 5 ml PO QID 11/07/18 11/07/18 History oxycodone 5 mg PO DAILY PRN 11/07/18 11/07/18 History potassium chloride [K-Tab] 60 meq PO QID 11/07/18 11/07/18 History prednisone 5 mg PO QAM 11/07/18 11/07/18 History rosuvastatin [Crestor] 5 mg PO HS 11/07/18 11/07/18 History tacrolimus [Prograf] 1 mg PO Q12 11/07/18 11/07/18 History valganciclovir 900 mg PO DAILY 11/07/18 11/07/18 History Patient History Medical History Diabetes (Chronic) Heart disease (Chronic) LVAD (left ventricular assist device) present (Chronic) SIRS (systemic inflammatory response syndrome) (Acute) Social History Preferred Language: Surinamese Communication Ability: Effective 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 There is some clear/ bloody drainage from the area. Toes mobile, distal pulse in tact. Questionable gangrenous changes beginning. Results & Data Vital Signs (Past 12 Hours) Vital Signs Temp Pulse Pulse Resp BP BP Pulse Ox 11/08/18 11:30 38.2 C H 103 H 22 131/66 93 11/08/18 09:25 98 H 11/08/18 07:04 37.4 C 97 H 32 H 149/92 H 93 11/08/18 04:29 38.6 C H 11/08/18 03:08 36.8 C 93 H 20 139/90 96
--- NOTE | 2018-11-08 15:58 | Hospitalist Progress Note ---
Date of Service November 08, 2018 Assessment & Plan (1) Cellulitis of foot, right: Patient is a 43 yr male who presents with right foot infection. Right foot cellulitis Denies any trauma, insect bite Concern for necrotizing infection, no evidence of osteomyelitis --Foot CT:Findings are consistent with diffuse cellulitis throughout the right foot with an ulcer along the plantar aspect of the fifth toe. Foci of subcutaneous gas are present in the lateral forefoot as detailed above, greatest around the fifth proximal phalanx. Although this could be related to cutaneous ulcer, a necrotizing infection is favored. If there is clinical concern for necrotizing fasciitis emergent surgical consultation and biopsy should be considered. Clinical correlation will be essential. 3. There is no convincing CT evidence of osteomyelitis. No organized fluid collection is identified to suggest abscess on this unenhanced examination. Chronic posttraumatic and mild degenerative changes as above. --Arterial Doppler:Segmental pressures as above. Triphasic and biphasic waveforms throughout the right lower extremity. No arterial occlusion. Blood Cx:Pending Wound Culture: Staph aureus --Appreciate Orthopedics, ID Input --Continue IV ABx as per ID --May need I&D --Tried to reach Transplant center at [facility] X 2. Will retry --Pain control H/O heart transplant 2 yrs ago H/O Rejection issues X2 Follows with [facility] Continue home meds CKD III Baseline creatinine: 1.5 Monitor renal function Morbid obesity sleep apnea BMI:46 Continue CPAP QHS DM II A1C:6.2 Continue ISS, basal Insulin Monitor BGs H/O Depression & Anxiety Continue Lexapro, Xanax. H/O DVT Eliquis held for possible procedure Questionable heart failure Continue home diuretics Monitor volume status Hypoglycemia Replace as needed H/O gout Continue allopurinol Hypertension Continue hydralazine monitor BP Hyperlipidemia On Crestor DVT Px: Eliquis held--resume as able Code Status Full Code Disposition: To be determined Subjective Patient is seen and examined at bedside Complains of right foot pain Also reports chronic back pain Denies any chest pain, shortness of breath, dizziness, nausea, abdominal pain Febrile today May need I&D for concern for necrotizing infection on CT Review of Systems Review of Systems: All systems reviewed & are unremarkable except as noted in HPI & below Physical Exam Physical Exam: Physical Exam: Vitals signs as noted above General Appearance:Obese, no apparent distress Head: normocephalic, Atraumatic Eyes: normal inspection, EOMI Neck: supple, Trachea midline Respiratory/Chest: Normal breath sounds, CTA, +Well healed vertical surgical scar Cardiovascular: S1, S2, No murmur Abdomen/GI:Soft, Non tender, Bowel sounds present Extremities/Musculoskelatal:normal inspection, right foot--5th toe ecchymosis, open wound, tender, mild erythema Neurologic/Psych:AAOX3, grossly no focal neurological deficits Skin: normal color, warm Results & Data Vital Signs (Past 12 Hours) Vital Signs Temp Pulse Pulse Resp BP BP Pulse Ox 11/08/18 15:17 37.7 C H 98 H 20 122/59 L 96 11/08/18 11:30 38.2 C H 103 H 22 131/66 93 11/08/18 09:25 98 H 11/08/18 07:04 37.4 C 97 H 32 H 149/92 H 93 11/08/18 04:29 38.6 C H Laboratory Results Short CBC 11/07/18 11/08/18 Range/Units 20:10 05:23 WBC 12.62 H 12.04 H (4.8-10.8) K/uL Hgb 14.0 12.4 L (14.0-18.0) g/dL Hct 41.4 L 36.2 L (42-52) % Plt Count 126 L 130 (130-400) K/uL BMP 11/07/18 11/07/18 11/08/18 20:10 21:21 05:23 Sodium 135 L 138 Potassium 4.4 4.5 Chloride 105 110 H Carbon Dioxide 23 20 L BUN 32 H 27 H Creatinine 1.63 H 1.38 Glucose 278 H 121 H Calcium 8.7 8.6 Cardiac Enzymes 11/07/18 Range/Units 20:10 Troponin I < 0.015 (0-0.045) ng/ml
[2018-11-08] MEDS ORDERED: Nursing to Pharmacy Communication ONE (16:15)
--- NOTE | 2018-11-08 19:27 | Discharge Summary ---
Date of Service November 08, 2018 Admission HPI Per Admitting Provider CHIEF COMPLAINT: Right foot infection. HISTORY OF PRESENT ILLNESS: This 43-year-old male with past medical history significant for type 2 diabetes, hyperlipidemia, gout, obstructive sleep apnea, on continuous positive airway pressure, chronic deep venous thrombosis, morbid obesity, chronic kidney disease stage III, restless legs syndrome, low back pain, status post heart transplant 2 years ago because of enlarged heart, chronic lymphedema, posttraumatic stress disorder, depression and anxiety comes in because of right foot infection. He has some callouses in his right foot. They were not infected. They were healing, but since yesterday, the foot has become somewhat erythematous and developed fever and chills so he came here. Before coming, he called his transplant center and they were okay for him to come here. He was afebrile and hemodynamically stable. White count is 12.6. His ESR is 37. CRP is 26. Creatinine 1.6, baseline is 1.5. Chest x-rays, no obvious infiltrate. Right foot x-ray shows no evidence for myelitis within the right foot, 7 mm focal skin ulceration of the plantar surface of the distal right first toe. There is also soft tissue gas at the base of the fifth toe which could be due to skin ulceration or gas forming infection. Tried to call his transplant center and left a message, also spoke with orthopedics, they are okay for admission and follow up with CAT scan and advised for broad-spectrum antibiotics. He is allergic to penicillin and vancomycin. He needs Benadryl before those antibiotics, so we put him on clindamycin and also I.V. imipenem. The patient has some headaches. Denies any dizziness. No blurred visions. He has some thrush. He is on nystatin swish and swallow for that. Appetite is okay. Sleeping okay. No chest pain. No shortness of breath. No cough. No nausea. No abdominal pain. No diarrhea or constipation. Urine is somewhat dark, but no burning micturition. No hematuria. Ambulating okay. Since heart transplant, he has problems with rejection two times, the last one was in about the first week of September and [facility] adjusting his immunosuppressive medications. Admission Exam Per Admitting Provider PHYSICAL EXAMINATION: GENERAL: The patient is morbidly obese, not in acute distress. VITAL SIGNS: Temperature 36.7, pulse 83, respiratory rate 20s, blood pressure 138/86 and oxygen 97% on room air. HEENT: No pallor. No icterus. Pupils equal, round and reactive to light. NECK: No JVD. No neck masses. No carotid bruits. CARDIOVASCULAR: S1, S2 heard. Regular rate and rhythm. No murmur. No gallop. RESPIRATORY SYSTEM: Normal AP diameter. No accessory muscle use. No wheezing. No crackles. ABDOMEN: Soft. Bowel sounds present. Nontender. No distention. CENTRAL NERVOUS SYSTEM: Nonfocal. EXTREMITIES: Right foot erythematous and somewhat swollen and right big toe on the lateral medial aspect of the plantar surface callous with some ulcer seen and also on the lateral side of the foot callous and ulcer seen No obvious drainage seen.. Principal Diagnosis Right Foot Cellulitis Possible Necrotizing Fascitis Diabetic Foot Ulcer Hypomagnesemia Discharge Data Allergies Allergy/AdvReac Type Severity Reaction Status Date / Time cephalexin Allergy Intermediate rash Verified 11/07/18 22:24 Penicillins Allergy Intermediate rash Verified 11/07/18 22:24 vancomycin AdvReac Intermediate Red Man Verified 11/07/18 22:24 Syndrome Consultations 11/07/18 21:16 ED Decision to Admit Stat 11/08/18 08:00 Consult Infectious Diseases Routine Consult Orthopedic Surgery Routine 11/08/18 19:17 Burn CD for patient Stat Procedures Performed Operation Date: 11/10/18 07:00 <No data on this case meets the specified criteria> Foot CT:Findings are consistent with diffuse cellulitis throughout the right foot with an ulcer along the plantar aspect of the fifth toe. Foci of subcutaneous gas are present in the lateral forefoot as detailed above, greatest around the fifth proximal phalanx. Although this could be related to cutaneous ulcer, a necrotizing infection is favored. If there is clinical concern for necrotizing fasciitis emergent surgical consultation and biopsy should be considered. Clinical correlation will be essential. 3. There is no convincing CT evidence of osteomyelitis. No organized fluid collection is identified to suggest abscess on this unenhanced examination. Chronic posttraumatic and mild degenerative changes as above. --Arterial Doppler:Segmental pressures as above. Triphasic and biphasic waveforms throughout the right lower extremity. No arterial occlusion. Ordered Studies 11/07/18 22:49 CT foot RT wo con Urgent 11/08/18 08:50 US arterial duplex LE RT Urgent Hospital Course (1) Cellulitis of foot, right: Patient is a 43 yr male who presents with right foot infection. Right foot cellulitis Denies any trauma, insect bite Concern for necrotizing infection, no evidence of osteomyelitis --Foot CT:Findings are consistent with diffuse cellulitis throughout the right foot with an ulcer along the plantar aspect of the fifth toe. Foci of subcutaneous gas are present in the lateral forefoot as detailed above, greatest around the fifth proximal phalanx. Although this could be related to cutaneous ulcer, a necrotizing infection is favored. If there is clinical concern for necrotizing fasciitis emergent surgical consultation and biopsy should be considered. Clinical correlation will be essential. 3. There is no convincing CT evidence of osteomyelitis. No organized fluid collection is identified to suggest abscess on this unenhanced examination. Chronic posttraumatic and mild degenerative changes as above. --Arterial Doppler:Segmental pressures as above. Triphasic and biphasic waveforms throughout the right lower extremity. No arterial occlusion. Blood Cx:Pending Wound Culture: Staph aureus --Appreciate Orthopedics, ID Input --Continue IV ABx as per ID (clindamycin, daptomycin, Primaxin) --May need I&D --Accepted at [facility] for further management --Pain control H/O heart transplant 2 yrs ago H/O Rejection issues X2 Follows with [facility] Continue home meds CKD III Baseline creatinine: 1.5 Monitor renal function Morbid obesity sleep apnea BMI:46 Continue CPAP QHS DM II A1C:6.2 Continue ISS, basal Insulin Monitor BGs H/O Depression & Anxiety Continue Lexapro, Xanax. H/O DVT Eliquis held for possible procedure Questionable heart failure Continue home diuretics Monitor volume status Hypoglycemia Replace as needed H/O gout Continue allopurinol Hypertension Continue hydralazine monitor BP Hyperlipidemia On Crestor DVT Px: Eliquis held--resume as able Heparin SQ Code Status Full Code Disposition: Given concern for high risk surgery & possible necrotizing fasciitis, his history of heart transplant Patient being transferred to [facility] for further management Accepting physician Thai Love-- Cardiology at [facility] Total Time Total Time Spent Total Time Spent (In Minutes): 45 minutes Total Time Includes: Examination of the Patient, Discharge Planning, Medication Reconciliation, Communication With Other Providers and Other Discharge Plan Discharge Items Patient Disposition: Transfer Acute Care Hospital Reason For Visit: FEVER, RIGHT FOOT INFECTIION Discharge Diagnosis: Right Foot Cellulitis Possible Necrotizing Fascitis Diabetic Foot Ulcer Activity: Per Instructions section Exercise/Sports: Wait until after follow-up appointment Non-emergency contact: Primary Care Provider, Surgeon and Nurse Private Duty Call non-emergency contact if: you have any medication questions, your symptoms worsen, your pain is not controlled, your pain is worsening, your pain is unusual for you, you have a fever, your wound has increased redness, your wound has increased drainage and your wound pain has increased Follow-up/Referrals: Ruth Jordan DO [Primary Care Provider] - Diet: Carb Consistent or DM2 and Heart Healthy Addtl Attending Provider Instructions: Follow up with Thai Love at [facility] for further management Your Eliquis is held while you are hospitalized at [facility] Your Blood/Wound Cultures are pending You received Clindamycin, Daptomycin and Primaxin for your foot infection and per the recommendations from Infectious disease doctor Follow up with your Primary Care Physician and Surgeon upon discharge from [facility] Seek immediate medical attention if your symptoms reoccur or worsen Pending Studies at Discharge: Yes Studies:: Blood, Wound Cultures Stand-Alone Forms: My [facility] Skilled Items Patient informed of condition?: Yes DNR: No Discharge Level of Care: Other Communicable Disease: No Discharge Prognosis: Stable Lines: Peripheral IV Urinary Catheter: No Medications and DC Order Prescriptions: Continued Aspir-81 81 m PO DAILY RF: 0 multivitamin Tablet 1 tab PO DAILY RF: 0 valganciclovir 450 mg Tablet 900 mg PO DAILY RF: 0 nystatin 100,000 unit/mL suspension 5 ml PO QID RF: 0 alprazolam [Xanax] 1 mg tablet 1 mg PO HS RF: 0 prednisone 5 mg tablet 5 mg PO QAM RF: 0 metolazone 5 mg tablet 5 mg PO DAILY PRN (Reason: Weight Gain) RF: 0 cyanocobalamin (vitamin B-12) [Vitamin B-12] 1,000 mcg Tablet 1,000 mcg PO Q OTHER DAY RF: 0 hydralazine 25 mg tablet 50 mg PO Q12 RF: 0 mycophenolate mofetil 500 mg Tablet 1,000 mg PO BID RF: 0 famotidine 20 mg Tablet 20 mg PO BID RF: 0 bumetanide 1 mg tablet 3 mg PO BID RF: 0 allopurinol [Zyloprim] 300 mg tablet 300 mg PO DAILY RF: 0 tacrolimus [Prograf] 1 mg capsule 1 mg PO Q12 RF: 0 oxycodone 5 mg Tablet 5 mg PO DAILY PRN (Reason: Pain) RF: 0 insulin lispro [Humalog KwikPen Insulin] 100 unit/mL insulin pen subcut TIDM RF: 0 escitalopram oxalate [Lexapro] 10 mg tablet 10 mg PO HS RF: 0 escitalopram oxalate [Lexapro] 20 mg tablet 20 mg PO HS RF: 0 rosuvastatin [Crestor] 5 mg Tablet 5 mg PO HS RF: 0 calcium carbonate-vitamin D3 500 mg(1,250mg) -400 unit Tablet 1 tab PO BID RF: 0 Eliquis 5 mg tablet 5 mg PO BID RF: 0 Tresiba FlexTouch U-100 100 unit/mL (3 mL) insulin pen 35 unit subcut HS RF: 0 potassium chloride [K-Tab] 20 mEq tablet extended release 60 meq PO QID RF: 0 magnesium oxide 400 mg magnesium Tablet 800 mg PO BID RF: 0 Discharge Orders: Discharge Order (Routine); Ordered 11/08/18 Ordered By: Bert Swanson Admission Data Admit Date/Time: 11/07/18 22:43 Attending Provider: Bert Swanson Admit Provider: Anthony Monsivais Primary Care Provider: Ruth Jordan Other Providers: Anthony Monsivais ; Fran Orlando ; Jerry Smallwood
[2018-11-08] MEDS ORDERED: ESCITALOPRAM OXALATE 20 MG TAB PO SCH (21:00)
[2018-11-08] MEDS ORDERED: ROSUVASTATIN CALCIUM 5 MG TAB PO SCH (21:00)
[2018-11-08] MEDS ORDERED: ESCITALOPRAM OXALATE 10 MG TAB PO SCH (21:00)
[2018-11-08] MEDS ORDERED: ALPRAZolam 0.5 MG TABLET PO SCH (21:00)
[2018-11-08] MEDS ORDERED: HEPARIN SOD 5,000 UNIT/0.5 ML VIAL SQ SCH (22:00)
[2018-11-09] MEDS: IMIPENEM/CILASTATIN SODIUM 500 MG in DEXTROSE 5% 100 ML IV SCH (00:26)
[2018-11-09] MEDS: ACETAMINOPHEN 325 MG TAB PO PRN (00:27)
--- NOTE | 2018-11-09 17:16 | Pharmacy Report ---
ED Pharmacist Progress Note - ED Pharmacist Progress Note Date of Service:: November 09, 2018 Notes:: MRSA x2 isolated from R foot culture. Called [facility] , spoke w RN taking care of patient (Maribel). Gave verbal report of MRSA isolated from wound culture. Faxed result to , confirmation received.
== END 2018-11-09 02:30 | disposition short-term general hospital (02) | DRG 602 ==
LOC: ED 17:36 → 2E 22:43